=== PATIENT | female | born 1930 | race African-American/Black ===

== ENCOUNTER 2017-01-21 23:00 | Emergency (ER) | payer MEDICARE, BC ==
[~2017-01-21] VITALS: Ht 157.5 cm; Wt 77.2 kg
[~2017-01-21 23:00] MED LIST: DICLOFENAC LEFTEYE
[2017-01-21] MEDS ORDERED: TETANUS, DIPHTHERIA, PERTUSSIS VAC/PF 0.5ML (>7YR OLD) IM ONE (23:45)
[2017-01-21] MEDS ORDERED: ACETAMINOPHEN 325MG TABLET PO ONE (23:45)
[2017-01-22 00:58] VITALS: BP 141/71
== END 2017-01-22 01:52 | disposition home or self-care (01) ==
LOC: ER 23:01
DX: Z88.5 Allergy status to narcotic agent (principal); S09.90XA Unspecified injury of head, initial encounter; M25.562 Pain in left knee; K21.9 Gastro-esophageal reflux disease without esophagitis; I10 Essential (primary) hypertension; F17.210 Nicotine dependence, cigarettes, uncomplicated; S61.219A Laceration without foreign body of unspecified finger without damage to nail, initial encounter; W19.XXXA Unspecified fall, initial encounter; Y93.89 Activity, other specified; Y92.9 Unspecified place or not applicable; Y99.8 Other external cause status
CPT/HCPCS: 70450; 73562; 90471; 90715; 99284; L1830

== ENCOUNTER 2017-04-17 14:51 | Inpatient (IN) | payer MEDICARE, BC ==
[~2017-04-17] VITALS: Ht 157.5 cm; Wt 76.3 kg
[2017-04-17 17:34] LABS: BASOPHILS % 0.8 % (0.0-2.0); HEMATOCRIT. 40.3 % (36.0-48.0); HEMOGLOBIN. 13.3 g/dL (12.0-16.0); LYMPHOCYTES % 25.2 % (20.0-50.0); MEAN CORPUSCULAR HEMOGLOBIN 28.9 pg (28.0-32.0); MEAN CORPUSCULAR VOLUME 87.7 fL (81.0-99.0); MEAN PLATELET VOLUME 7.9 fl (7.4-10.4); MONOCYTES % 6.7 % (2.0-8.0); NEUTROPHILS % 66.3 % (40.0-76.0); PLATELET 233 x1000/uL (130-400); RED BLOOD CELL COUNT 4.59 mill/uL (4.2-5.4)
[2017-04-17 17:38] LABS: PARTIAL THROMBOPLASTIN TIME 34.2 sec (24.0-34.0); PROTHROMBIN TIME 10.7 sec
[2017-04-17 17:39] LABS: CHLORIDE 105 mEq/L (98-107)
[2017-04-17 17:46] LABS: CARBON DIOXIDE 29 mEq/L (21-32)
[2017-04-17 17:49] LABS: TROPONIN I < 0.02 ng/mL (0.00-0.04)
[2017-04-17] MEDS ORDERED: ASPIRIN 81MG TABLET PO ONE (19:45)
[2017-04-17 22:15] VITALS: BP 157/84
[2017-04-17 22:20] VITALS: BP 157/84
[2017-04-17] MEDS ORDERED: ASPI-1159 PO (22:25)
[2017-04-17] MEDS ORDERED: MAGNESIUM HYDROXIDE 400MG/5ML 30ML UDC PO PRN (23:45)
[2017-04-17] MEDS ORDERED: AMLODIPINE 5MG TABLET PO SCH (23:45)
[2017-04-18] VITALS: BP 144/77
[2017-04-18] MEDS ORDERED: CLONIDINE 0.1MG TABLET PO PRN (00:45)
[2017-04-18 04:00] VITALS: BP 145/82
[2017-04-18 06:28] LABS: BASOPHILS % 0.6 % (0.0-2.0); EOSINOPHILS % 1.7 % (0.0-5.0); HEMATOCRIT. 37.8 % (36.0-48.0); HEMOGLOBIN. 12.7 g/dL (12.0-16.0); LYMPHOCYTES % 30.5 % (20.0-50.0); MEAN CORPUSCULAR HEMOGLOBIN 29.3 pg (28.0-32.0); MEAN CORPUSCULAR VOLUME 87.6 fL (81.0-99.0); NEUTROPHILS % 60.2 % (40.0-76.0); PLATELET 218 x1000/uL (130-400); RED BLOOD CELL COUNT 4.32 mill/uL (4.2-5.4); RED CELL DISTRIBUTION WIDTH 16.1 % (11.6-14.6)
[2017-04-18 06:50] LABS: CARBON DIOXIDE 28 mEq/L (21-32); CHLORIDE 107 mEq/L (98-107); HDL CHOLESTEROL 50 mg/dL (40-59); LDL CHOLESTEROL 88 mg/dL (5-100)
[2017-04-18 08:00] VITALS: BP 161/92
[2017-04-18] MEDS ORDERED: AMLODIPINE 5MG TABLET PO SCH (09:00)
[2017-04-18] MEDS: ASPIRIN 81MG EC TABLET PO SCH (09:44)
[2017-04-18 12:30] VITALS: BP 92/57
[2017-04-18] MEDS: CEFTRIAXONE 1 G PREMIX 50 ML IV SCH (15:58)
[2017-04-18 16:00] VITALS: BP 114/56
[2017-04-18 20:00] VITALS: BP 140/74
[2017-04-18 21:29] LABS: VITAMIN B12 SERUM 256 pg/mL (211-911)
[2017-04-19] VITALS: BP 153/81
[2017-04-19 04:00] VITALS: BP_SYST 119; BP_SYST 132; BP_SYST 152; BP_DIAS 64; BP_DIAS 91; BP_DIAS 92
[2017-04-19 08:00] VITALS: BP 145/79
[2017-04-19] MEDS: ASPIRIN 81MG EC TABLET PO SCH (08:39)
[2017-04-19] MEDS: ACETAMINOPHEN 325MG TABLET PO PRN (10:43)
[2017-04-19] MEDS: MELOXICAM 7.5MG TABLET PO SCH (10:43)
[2017-04-19 12:00] VITALS: BP_SYST 132; BP_SYST 155; BP_SYST 165; BP_DIAS 80; BP_DIAS 81; BP_DIAS 91
[2017-04-19] MEDS: CEFTRIAXONE 1 G PREMIX 50 ML IV SCH (15:45)
[2017-04-19 16:00] VITALS: BP 145/73
[2017-04-19 20:00] VITALS: BP_SYST 142; BP_SYST 163; BP_SYST 168; BP_DIAS 70; BP_DIAS 91; BP_DIAS 93
[2017-04-20] VITALS: BP 127/69
[2017-04-20 04:00] VITALS: BP 137/83
[2017-04-20 07:06] LABS: BASOPHILS % 0.3 % (0.0-2.0); EOSINOPHILS % 1.8 % (0.0-5.0); HEMATOCRIT. 39.4 % (36.0-48.0); HEMOGLOBIN. 13.1 g/dL (12.0-16.0); MEAN CORPUSCULAR HEMOGLOBIN 28.7 pg (28.0-32.0); MEAN CORPUSCULAR VOLUME 86.6 fL (81.0-99.0); MEAN PLATELET VOLUME 8.1 fl (7.4-10.4); MONOCYTES % 7.1 % (2.0-8.0); NEUTROPHILS % 65.8 % (40.0-76.0); PLATELET 230 x1000/uL (130-400); RED BLOOD CELL COUNT 4.55 mill/uL (4.2-5.4); RED CELL DISTRIBUTION WIDTH 15.7 % (11.6-14.6)
[2017-04-20 08:13] VITALS: BP 139/84
[2017-04-20] MEDS: MELOXICAM 7.5MG TABLET PO SCH (08:54)
[2017-04-20] MEDS: ASPIRIN 81MG EC TABLET PO SCH (08:54)
[2017-04-20] MEDS: ACETAMINOPHEN 325MG TABLET PO PRN (11:43)
[2017-04-20 12:00] VITALS: BP 148/94
[2017-04-20] MEDS: CEFTRIAXONE 1 G PREMIX 50 ML IV SCH (14:36)
[2017-04-20 16:00] VITALS: BP 138/79
[2017-04-20 18:26] VITALS: BP 138/79
== END 2017-04-20 18:42 | disposition home or self-care (01) | DRG 552 ==
LOC: EDBEDREQTM 20:03 → EDBEDREQ 20:03 → ENRESERV 20:11 → ER 21:07 → 5WST 21:50
PROVIDERS: ADMIT Specialist; ATTEND Specialist
DX: M48.06 Spinal stenosis, lumbar region (principal); E44.1 Mild protein-calorie malnutrition; I10 Essential (primary) hypertension; E78.5 Hyperlipidemia, unspecified; G89.29 Other chronic pain; R29.6 Repeated falls; K21.9 Gastro-esophageal reflux disease without esophagitis; Z90.49 Acquired absence of other specified parts of digestive tract; Z88.5 Allergy status to narcotic agent; Z98.49 Cataract extraction status, unspecified eye; Z79.82 Long term (current) use of aspirin; Z79.899 Other long term (current) drug therapy; M48.02 Spinal stenosis, cervical region
CPT/HCPCS: 36415; 70450; 70551; 71010; 72141; 72146; 72148; 73502; 73552; 80053; 80061; 82607; 83036; 83690; 83880; 84443; 84484; 85025; 85610; 85730; 93005; 93880; 97162; 97165; 99285; A4565; J0696; J7050

== ENCOUNTER 2017-05-22 15:29 | Emergency (ER) | payer MEDICARE, BC ==
[~2017-05-22] VITALS: Ht 157.5 cm; Wt 78.0 kg
[~2017-05-22 15:29] MED LIST changes: +ASPI-1159 PO; -DICLOFENAC LEFTEYE
[2017-05-22 17:21] VITALS: BP 160/69
== END 2017-05-22 19:08 | disposition home or self-care (01) ==
LOC: ER 18:35
DX: K94.22 Gastrostomy infection (principal); I10 Essential (primary) hypertension; K21.9 Gastro-esophageal reflux disease without esophagitis; Z88.6 Allergy status to analgesic agent; Z79.82 Long term (current) use of aspirin; Z98.890 Other specified postprocedural states; Y83.3 Surgical operation with formation of external stoma as the cause of abnormal reaction of the patient, or of later complication, without mention of misadventure at the time of the procedure; Y92.018 Other place in single-family (private) house as the place of occurrence of the external cause
CPT/HCPCS: 87070; 87077; 87186; 87205; 99284

== ENCOUNTER 2018-10-18 12:14 | Emergency (ER) | payer MEDICARE, BC | END 2018-10-18 13:00 | disposition left against medical advice (07) | LOC: ER 12:33 | DX: J02.9 Acute pharyngitis, unspecified (principal); Z53.21 Procedure and treatment not carried out due to patient leaving prior to being seen by health care provider ==

== ENCOUNTER 2018-11-12 17:42 | Emergency (ER) | payer MEDICARE, BC ==
[~2018-11-12] VITALS: Ht 157.5 cm; Wt 68.0 kg
[2018-11-12] MEDS ORDERED: CLONIDINE 0.1MG TABLET PO ONE (20:30)
[2018-11-12 21:02] LABS: BASOPHILS % 1.1 % (0.0-2.0); EOSINOPHILS % 1.5 % (0.0-5.0); HEMATOCRIT. 42.7 % (36.0-48.0); HEMOGLOBIN. 13.8 g/dL (12.0-16.0); LYMPHOCYTES % 23.2 % (20.0-50.0); MEAN CORPUSCULAR VOLUME 89.9 fL (81.0-99.0); MEAN PLATELET VOLUME 7.9 fl (7.4-10.4); MONOCYTES % 6.4 % (2.0-8.0); NEUTROPHILS % 67.8 % (40.0-76.0); PLATELET 264 x1000/uL (130-400); RED BLOOD CELL COUNT 4.75 mill/uL (4.2-5.4); RED CELL DISTRIBUTION WIDTH 15.4 % (11.6-14.6)
[2018-11-12 21:07] LABS: CHLORIDE 105 mEq/L (98-107)
[2018-11-12 22:34] VITALS: BP 141/82
== END 2018-11-12 22:41 | disposition home or self-care (01) ==
LOC: ER 17:42
DX: R51 Headache (principal); I16.0 Hypertensive urgency; E11.65 Type 2 diabetes mellitus with hyperglycemia; K44.9 Diaphragmatic hernia without obstruction or gangrene; Z88.5 Allergy status to narcotic agent; Z79.82 Long term (current) use of aspirin; Z98.890 Other specified postprocedural states
CPT/HCPCS: 36415; 71045; 83880; 84484; 93005; 99284